=== PATIENT | female | born 1945 | race African-American/Black ===

== ENCOUNTER 2019-07-19 17:18 | Inpatient (IN) | payer OTHER ==
[~2019-07-19] VITALS: Ht 149.9 cm; Wt 53.3 kg
[2019-07-19 17:22] VITALS: BP 128/58
[2019-07-19] MEDS ORDERED: TOPROL XL25 MG PO (17:45)
[2019-07-19] MEDS ORDERED: PEPCID20 MG PO (17:48)
[2019-07-19] MEDS ORDERED: ZESTRIL10 MG PO (17:48)
[2019-07-19] MEDS ORDERED: PLAVIX 75 MG TA75 MG PO (17:48)
[2019-07-19] MEDS ORDERED: L-TRYPTOPHAN500 MG PO (17:49)
[2019-07-19] MEDS ORDERED: CO Q-10100 M1 PO (17:50)
[2019-07-19] MEDS ORDERED: PEPPERMINT PO (17:52)
[2019-07-19 17:53] LABS: ABSOLUTE NEUTROPHILS 1.8 thou/uL (1.4-8.2); BASOPHILS 0.6 % (0.0-2.0); EOSINOPHILS 1.7 % (0.0-3.0); HEMATOCRIT 37.3 % (37.0-47.0); HEMOGLOBIN 12.8 gm/dL (12.0-15.0); LYMPHOCYTES 39.7 % (24.0-44.0); MCH 30.1 pg (26.0-34.0); MCHC 34.2 g/dL (28.0-37.0); PLATELET COUNT 280 thou/uL (150-400); RBC 4.24 mil/uL (4.20-5.00); RDW 12.5 % (10.5-14.5)
[2019-07-19 18:03] LABS: ANION GAP 6 mmol/L (7-16); BUN 23 mg/dL (7-18); CHLORIDE 96 mmol/L (98-107); CO2 31 mmol/L (21-32); CREATININE 1.4 mg/dL (0.6-1.0); GLUCOSE 113 mg/dL (74-106); POTASSIUM 3.6 mmol/L (3.5-5.1); SODIUM 133 mmol/L (136-145)
[2019-07-19 18:11] LABS: LIPASE 118 U/L (73-393); TROPONIN-I <0.06 ng/mL (<0.06)
[2019-07-19 19:03] VITALS: BP 117/54
[2019-07-19 19:22] VITALS: BP 114/41
[2019-07-19 22:17] VITALS: BP 140/50
[2019-07-19 22:29] LABS: CHOLESTEROL 221 mg/dL (<200); HDL CHOLESTEROL 35 mg/dL (>40); LDL CHOLESTEROL 154 mg/dL (<100); TC:HDL 6.3 Ratio (Not establshd); TRIGLYCERIDE 163 mg/dL (<150); VLDL 33 mg/dL (<40)
[2019-07-19 22:30] LABS: SERUM ASSESSMENT Clear
[2019-07-20 00:06] VITALS: BP 129/56
[2019-07-20 03:55] VITALS: BP 119/47
[2019-07-20 05:19] LABS: HEMATOCRIT 38.1 % (37.0-47.0); MCH 30.1 pg (26.0-34.0); MCHC 34.1 g/dL (28.0-37.0); MCV 88.4 fL (80.0-100.0); RBC 4.31 mil/uL (4.20-5.00); RDW 12.8 % (10.5-14.5); WBC 4.3 thou/uL (4.0-11.0)
[2019-07-20 05:28] LABS: CALCIUM 8.5 mg/dL (8.5-10.1); CREATININE 1.1 mg/dL (0.6-1.0)
--- NOTE | 2019-07-20 05:57 | NUR ---
PT NEW ADMIT YESTERDAY AT CHANGE OF SHIFT. A0X4. REPORTS MILD NAUSEA, NO VOMITING. PT CHEST PAIN SEEM TO HAVE BEEN ALLEVIATED FROM ED. REPORTS MILD DISCOMFORT OF 2/10 THAT HAS SO FAR SUBSIDED . NO PAIN CURRENTLY. NO SOB, NO EDEMA. CONSENT FORMS SIGNED. NO FURTHER CONCERNS. WILL FOLLOW POC
[2019-07-20 07:40] VITALS: BP 123/48
[2019-07-20 17:30] VITALS: BP 126/62
[2019-07-20 19:46] VITALS: BP 128/50
--- NOTE | 2019-07-20 19:48 | NUR ---
RECEIVED PT'S CARE AROUND 0735; PT. 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 DECREASE; ASSESSMENT CHARGED; FOLLOWING POC; PASSED ON REPORT;
[2019-07-21] VITALS (13 sets, daily range): BP systolic 100–134; BP diastolic 55–68
[2019-07-21 03:07] LABS: GLYCOHEMOGLOBIN (HGB A1C) 5.7 % (4.8-5.6)
--- NOTE | 2019-07-21 03:34 | NUR ---
ASSUMED CARE OF PT AT 1900HRS. PT IS AOX4 AND UP AD VLAD. PT LETS NEEDS BE KNOWN. PT COMPLAINED OF A MILD LLE PAIN AND WAS TREATED WITH TYLENOL. PT DENIED CHEST PAIN, SOA OR NAUSEA. PT TOOK A SHOWER BEFORE BEDTIME. PT PLACED NPO AT MIDNIGHT FOR PROCEDURE IN THE AM. PT WAS ABLE TO GET COMFORTABLE AND SLEEP PART OF THE SHIFT. VSS AND NO S/S OF ACUTE DISTRESS. WILL CONTINUE TO MONITOR.
[2019-07-21 04:08] LABS: HEMATOCRIT 36.9 % (37.0-47.0); HEMOGLOBIN 12.5 gm/dL (12.0-15.0); MCH 29.8 pg (26.0-34.0); MCHC 33.9 g/dL (28.0-37.0); PLATELET COUNT 258 thou/uL (150-400); RBC 4.19 mil/uL (4.20-5.00); RDW 12.5 % (10.5-14.5); WBC 5.1 thou/uL (4.0-11.0)
[2019-07-21 04:18] LABS: CREATININE 0.9 mg/dL (0.6-1.0); POTASSIUM 4.2 mmol/L (3.5-5.1)
[2019-07-21 04:54] LABS: ABSOLUTE NEUTROPHILS 1.4 thou/uL (1.4-8.2); ATYPICAL LYMPHS 2 %
[2019-07-21 16:56] LABS: CALCIUM 8.8 mg/dL (8.5-10.1); CREATININE 1.2 mg/dL (0.6-1.0); POTASSIUM 3.9 mmol/L (3.5-5.1)
--- NOTE | 2019-07-21 19:57 | NUR ---
RECEIVED PT'S CARE AROUND 07; PT. ON BED RESTING WITH EYES CLOSED; EQUAL CHEST RISING NOTICED; SR ON THE MONITOR; IV FLUIDS RUNNING; DURING AM ASSESSMENT PT. AOX4; NPO; REMAINED ABOUT PRE/POST PROCEDURE; ST. UNDERSTANDING; PARTIAL AM MEDICATION GIVEN; GONE FOR PROCEDURE AROUND 1100; BACK CLOSE TO 1300; VS WNL; SBP ON THE 120s; BED REST FOR TWO HOURS; EDUCATED ABOUT HOLDING PRESSURE IF COUGHING OR LAUGHING HARD; ST. UNDERSTANDING; EDUCATED ABOUT CALLING IMMEDIATELY IF FEELING SOME RUNNING OR GRWOING OVER R. GROIN AREA; ONETIME NEW MEDICATION GIVEN; EDUCATED ABOUT IT; ST. UNDERSTANDING; SBP ON THE 100s; CREATININE ELEVATED; PHYSICIAN NOTIFIED; ORDERS RECEIVED; CONTINUE 0.4 NS ON EMAR AFTER FINISHED POST CATH IV FLUIDS; MONITORING BP; NO HEMATOMA THROUGH THE REST OR DURING THE AFTERNOON; AT SHIFT CHANGE DRAINAGE OVER DRESSING; DRESSING CHANGE PER NIGHT NURSE; ASSESSMENT CHARGED; FOLLOWING POC; PASSED ON REPORT;
[2019-07-22 03:38] VITALS: BP 112/53
[2019-07-22 03:40] VITALS: BP 112/53
--- NOTE | 2019-07-22 04:00 | NUR ---
Right groin dressing saturated with fresh bloody dge. Applied pressure for 15 min and bleeding has stopped. No hematoma , right groin soft and has no further oozing. C/O mild headache for which tylenol was given with good relief. She stated she slept well during the night and denies any discomfort. Up ad yunier in room with steady gait. Voiding per toilet. Progressing towards care plan goals.
[2019-07-22 08:00] VITALS: BP 123/59
--- NOTE | 2019-07-22 08:55 | EKG ---
[facility] [place] [address] ELECTROCARDIOGRAM REPORT Name: JEAN REYNA Room #: 217-P ADM IN M.R.#: [id number] Admission: 07/19/19 Attend Phys: Alesia Barclay MD Discharge: Date of : 47 Report #: [id number] THIS REPORT FOR: cc: Adry Ingram MD, Cynthia MD Couchonnal, Luis F. 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
[2019-07-22 10:39] LABS: CALCIUM 9.1 mg/dL (8.5-10.1); CREATININE 0.8 mg/dL (0.6-1.0); POTASSIUM 3.8 mmol/L (3.5-5.1)
[2019-07-22 12:00] VITALS: BP 120/59
[2019-07-22] MEDS ORDERED: IMDUR 30 MG TAB30 M1 PO (13:35)
[2019-07-22] MEDS ORDERED: LIPITOR40 MG PO (13:35)
[2019-07-22] MEDS ORDERED: METOPROLOL SUCC25 M1 PO (13:36)
[2019-07-22] MEDS ORDERED: LISINOPRIL2.5 MG PO (13:37)
[2019-07-22 13:51] VITALS: BP 120/59
--- NOTE | 2019-07-22 14:52 | NUR ---
ASSUMMED PT CARE AT APPROXIMATELY 0700. PT A&O X4. ASSESSMENT CHARTED. FALL PRECAUTIONS IN PLACE. PT DENIES HAVING CHEST PAIN. PT DENIES HAVING SOB. PT STATED SHE HAD CHRONIC BACK PAIN. PT RECIEVED ANALGESICS. PT STATED ANALGESICS HELPED RELIEVE BACK PAIN. PT DISCHARGING HOME C SELF CARE. PT R SHILPI C/D/I. NO HEMATOMA. PT AMBULATES STEADY/INDEPENDENT. PT RECIEVED DISCHARGE EDUCATION. PT STATED UNDERSTANDING AND DENIED HAVING FURTHER QUESTIONS. VITAL SIGNS STABLE. IV DC. TELE DC. PT RECIEVING HOSPITAL TRANSPORT OFF UNIT. PT COMFORTABLE. PT DENIES HAVING FURTHER CONCERNS.
--- NOTE | 2019-07-22 17:06 | CATHLAB ---
[facility] [place] [address] INVASIVE PROCEDURE REPORT Name: JEAN REYNA Room #: 217-P DIS IN M.R.#: [id number] Admission: 07/19/19 Attend Phys: Alesia Barclay MD Discharge: 07/22/19 Date of : 47 Report #: [id number] THIS REPORT FOR: cc: Adry Ingram MD, Cynthia MD Lammoglia, Francisco J. MD ~ APPROVED REPORT Study performed: 07/21/2019 10:37:31 Patient Details Patient Status: In-Patient Room #: The patient is a 73 year-old female Event Personnel Sherif Zapata Doctor Of Nurse Anesthesia Practice, Shobha Vargas RN, Jamar Garcia RTR Chris Garcia Roberta Monitor Procedures Performed Art Access - R femoral artery* Left Heart Cath w/or w/o Coronaries [id number] [facility] [id number] Mod Sed Same Phys/QHP Ea [id number] 11956 Initial Mod Sed Same Phys/QHP 5y [id number] Hemostasis with Manual pressure, supervision of conscious sedation Indication Chest pain Procedure Narrative The Right Groin^ was infiltrated with 1% Lidocaine subcutaneous anesthesia. A PINNACLE 4FR Sheath #[id number] sheath was inserted into the RFA 4F^. Coronary angiography was performed using coronary diagnostic catheters. The right coronary system was accessed and visualized with a 3DRC catheter. The left coronary system was accessed and visualized with a JL4 catheter. Hemostasis was obtained with manual pressure following sheath removal without any complications. The patient tolerated the procedure well and there were no complications associated with the procedure. Intraoperative Conscious Sedation Sedation start time: 1110 Case end Time: 1149 Versed 2 mg Fluoro Time: 3.70 minutes [place] [address] [place] [address] INVASIVE PROCEDURE REPORT Name: JEAN REYNA Room #: 217-P [facility].#: [id number] Admission: 07/19/19 Attend Phys: Alesia Barclay, Discharge: 07/22/19 Date of : 47 Report #: [id number] Dose: DAP 2233.70 cGycm2 331 mGy Contrast Type and Amount: Omnipaque 45 ml Coronary Angiography The patient's coronary anatomy is right dominant. Diagnostic Cath LAD Small caliber type II vessel coarsing in anterior interventricular sulcus giving rise to septal and diagonal branches. At its mid point a small diagonal arises then the LAD proper rapidly decreases in size to less than 0.5 mm diameter and then terminates as a string at the apex. Prior to the mid point mild luminal irregularities are noted. Diagonal 1 diminuitive caliber vessel coarsing along the anterolatral wall with intruminal irregularities Circumflex small caliber vessel with a proximal eccentric lesion of between 25-50%. It gives rise to a long but small caliber first marginal with luminal irregularities present. OM1 small caliber vessel with luminal irregularities OM2 small caliber terminal branch of the circumflex proper Right Coronary Moderate caliber dominant vessel of normal origin proceeds in the AV groove giving rise to RA and RV branches. At the crux of the heart it gives rise to a small to moderate caliber posterior descending artery.There is mild luminalirregularities but no flow limiting lesions R PDA Small to moderate caliber vessel with mild luminal irregularities Left Ventriculography Left Ventriculography was not performed. Hemodynamics The aortic pressure is 139/51 mmHg with a mean of 74 mmHg. The left ventricular pressure is 151/8 mmHg with a mean of mmHg. Conclusion 1. Coronary artery disease diffuse non-obstructive but with rapidly tapering diameter of the LAD to less than 0.5mm 2. Abnormal hemodynamics with elevated LVEDP Recommendations [facility] [address] [place] [address] INVASIVE PROCEDURE REPORT Name: JEAN REYNA Room #: 217-P DIS IN M.R.#: [id number] Admission: 07/19/19 Attend Phys: Alesia Barclay, Discharge: 07/22/19 Date of : 47 Report #: [id number] Cardiac Risk Reduction Program [facility] <ELECTRONICALLY SIGNED> By: Sherif Zapata MD 07/22/19 1704 1704 1704 Sherif Zapata MD /INF
== END 2019-07-22 15:30 | disposition home or self-care (01) | DRG 286 ==
LOC: ER 17:18 → EROBS 19:00 → 2N 19:00
PROVIDERS: Nurse Practitioner; Nurse Practitioner Family; ADMIT Internal Medicine
PROC: 4A023N7 Measurement of Cardiac Sampling and Pressure, Left Heart, Percutaneous Approach (ICD-10-PCS; principal; 2019-07-22)
PROC: B2111ZZ Fluoroscopy of Multiple Coronary Arteries using Low Osmolar Contrast (ICD-10-PCS; principal; 2019-07-22)
DX: I25.110 Atherosclerotic heart disease of native coronary artery with unstable angina pectoris (principal); N17.0 Acute kidney failure with tubular necrosis; N17.9 Acute kidney failure, unspecified; G35 Multiple sclerosis; I10 Essential (primary) hypertension; K21.9 Gastro-esophageal reflux disease without esophagitis; E78.5 Hyperlipidemia, unspecified; Z79.899 Other long term (current) drug therapy; Z88.1 Allergy status to other antibiotic agents; Z88.2 Allergy status to sulfonamides; I25.2 Old myocardial infarction; Z98.49 Cataract extraction status, unspecified eye; Z82.3 Family history of stroke
CPT/HCPCS: 10081; 10194

== ENCOUNTER → 2019-08-22 | Outpatient (CLI) | payer OTHER ==
[~2019-08-22] MED LIST: CO Q-10100 M1 PO; IMDUR 30 MG TAB30 M1 PO; L-TRYPTOPHAN500 MG PO; LIPITOR40 MG PO; LISINOPRIL2.5 MG PO; METOPROLOL SUCC25 M1 PO; PEPCID20 MG PO; PEPPERMINT PO; PLAVIX 75 MG TA75 MG PO; TOPROL XL25 MG PO; ZESTRIL10 MG PO
== END ==
LOC: SJCVC 14:41
PROVIDERS: ATTEND Internal Medicine
DX: I25.10 Atherosclerotic heart disease of native coronary artery without angina pectoris (principal); I10 Essential (primary) hypertension; E78.5 Hyperlipidemia, unspecified; K21.9 Gastro-esophageal reflux disease without esophagitis; Z82.49 Family history of ischemic heart disease and other diseases of the circulatory system; Z79.899 Other long term (current) drug therapy

== ENCOUNTER → 2020-09-23 | Outpatient (CLI) | payer OTHER | LOC: SJCVC 10:24 | PROVIDERS: ATTEND Internal Medicine | DX: E78.5 Hyperlipidemia, unspecified (principal); I25.10 Atherosclerotic heart disease of native coronary artery without angina pectoris; K21.9 Gastro-esophageal reflux disease without esophagitis; I10 Essential (primary) hypertension; Z79.82 Long term (current) use of aspirin; Z79.899 Other long term (current) drug therapy; Z82.49 Family history of ischemic heart disease and other diseases of the circulatory system ==